=== PATIENT | female | born 1995 | race Caucasian/White ===

== ENCOUNTER 2023-05-14 13:33 | Emergency (ER) | payer BC, SELFPAY ==
--- NOTE | ~2023-05-14 | XR_ITS ---
EXAMINATION: XR finger 5th LT min 2V DATE: 05/14/2023 13:56 INDICATION: Left hand fifth digit injury and swelling. TECHNIQUE: 3 views of left hand fifth digit were obtained. COMPARISON: None. FINDINGS: Bone alignment is normal. No fracture. Joint spaces are normal. IMPRESSION: 1. No fracture. Reviewed, dictated and finalized at location A. RONMENTAL DIRECTOR IMPRESSION: 1. No fracture.
[2023-05-14 13:42] VITALS: BP 128/82; PULSE 63; RESP 20; TEMP 36.6; O2SAT 94
--- NOTE | 2023-05-14 13:47 | ED.UPPEXIN ---
HPI - Extremity Injury (Upper) General Chief Complaint: Extremity Injury, Upper Stated Complaint: Injury to Left Pinky Source: patient and RN notes reviewed History of Present Illness HPI narrative: 27 yo F presents to urgent care with complaints of left pinky finger pain and swelling. Pt states she was walking last night and accidentally hit her left pinky finger on the door frame. Denies any other injury and has no other complaints. Related Data Allergies Allergy/AdvReac Type Severity Reaction Status Date / Time nkda Allergy Mild Uncoded 07/26/08 17:30 Review of Systems Review of Systems: CONSTITUTIONAL: Denies fever, chills, or sweats. EYES: Denies visual changes, redness, or discharge. ENT: Denies otalgia and sore throat CARDIOVASCULAR: Denies chest pain, palpitations, or edema. RESPIRATORY: Denies cough or dyspnea. GASTROINTESTINAL: Denies abdominal pain, nausea, vomiting, or diarrhea. GENITOURINARY: Denies dysuria or hematuria. SKIN: Denies rash or itching. MUSCULOSKELETAL: Left pinky finger pain NEUROLOGIC: Denies headache, numbness, or weakness. PMFSH Comments At the time of my signature, I reviewed and agree with the nursing past medical, surgical, social, and family history. There is no relevant family history pertinent to the patient complaint. Exam Narrative: GENERAL: This is a well-nourished, well-developed patient, in no apparent distress. HEAD: normocephalic, atraumatic. EYES: Sclera clear/white. Vision is grossly intact. EARS: External ears normal, auditory canals clear and without drainage. Hearing grossly intact. NOSE: External nose normal with no obvious nasal discharge, nares without redness, no rhinorrhea. THROAT: Mucous membranes moist, posterior pharynx clear. NECK: Neck supple, non-tender without lymphadenopathy, masses or thyromegaly. CARDIOVASCULAR: Regular rate RESPIRATORY: No respiratory distress SKIN: warm, intact with no suspicious lesions or rash, good texture and turgor. NEURO: awake, alert, and oriented to person, place and time. There were no obvious focal neurologic abnormalities. EXTREMITIES: swelling and tenderness to left pinky finger, proximal phalanx, limited ROM due to pain. BACK: Nontender without deformity or crepitus. No flank tenderness. Course Course Level of Care: Express Care Visit Vital Signs Vital signs: Vital Signs Temperature 97.8 F 05/14/23 13:42 Pulse Rate 63 05/14/23 13:42 Respiratory Rate 20 05/14/23 13:42 Blood Pressure 128/82 05/14/23 13:42 Pulse Oximetry 94 05/14/23 13:42 Oxygen Delivery Room Air 05/14/23 13:42 Temperature 97.8 F 05/14/23 13:42 Pulse Rate 63 05/14/23 13:42 Respiratory Rate 20 05/14/23 13:42 Blood Pressure 128/82 05/14/23 13:42 Pulse Oximetry 94 05/14/23 13:42 Oxygen Delivery Room Air 05/14/23 13:42 Reviewed MDM - Extremity Injury (Upper) MDM Narrative Medical decision making narrative: Use the RICE method at home. May take ibuprofen and/or Tylenol if needed. If symptoms persist in 1 week after conservative treatment, follow-up with specialist. Differential Diagnosis Differential diagnosis: Likely finger sprain, dislocation of finger and other (Finger fracture) Imaging Data Radiologist's impression: [place] [id number] XRay Report Signed Patient: Shaista Weinberg : 1995 MR#: [id number] Age/Sex: 27 / F Acct:[id number] Loc: [facility]? ? ADM Date: 05/14/23Attending Dr: Ordering Physician: Radha Gomez APRN Date of Service: 05/14/23 Procedure(s): XR finger 5th LT min 2V Accession Number(s): [id number] cc: Radha Gomez APRN; Page Escobedo MD~ EXAMINATION: XR finger 5th LT min 2V DATE: 05/14/2023 13:56 INDICATION: Left hand fifth digit injury and swelling. TECHNIQUE: 3 views of left hand fifth digit were obtained. COMPARISON: None. FINDINGS: Bone align
== END 2023-05-14 14:12 | disposition home or self-care (01) ==
PROVIDERS: Emergency Provider Nurse Practitioner Family; PCP Internal Medicine
DX: S63.619A Unspecified sprain of unspecified finger, initial encounter (principal); W22.09XA Striking against other stationary object, initial encounter
CPT/HCPCS: 29130; 73140; 99213; G0463